=== PATIENT | female | born 1945 | race Caucasian/White ===

== ENCOUNTER 2021-04-26 08:17 | Outpatient (CLI) | payer MEDICARE, SELFPAY ==
[2021-04-26 10:22] LABS: SARS-CoV-2 Ag Negative (Negative)
[2021-04-26 11:19] LABS: SARS-CoV-2 RNA PCR Negative (Negative)
== END 2021-04-26 08:18 | disposition home or self-care (01) ==
LOC: CHSLAB 08:25
PROVIDERS: PCP Family Medicine; Visit Provider Family Medicine
DX: Z20.822 Contact with and (suspected) exposure to COVID-19 (principal)
CPT/HCPCS: 87426; C9803; U0003; U0005